=== PATIENT | female | born 1985 | race Caucasian/White ===

== ENCOUNTER → 2016-04-27 09:15 | Outpatient (CLI) | payer BC ==
[2014-10-17 15:09] VITALS: BMI 35.8
[~2016-04-27 09:15] MED LIST: ACETAMINOPHEN500 M1 PO; ATIVAN1 MG PO; BENTYL10 MG PO; CELEXA10 MG PO; COMPAZINE10 MG PO; IMITREX100 MG PO; MULTI-DAY VITAM1 TAB PO; OXYCONTIN10 MG PO; PRILOSEC20 MG PO; SINGULAIR10 MG PO; TOPAMAX25 MG PO; ULTRAM50 MG PO; VALTREX500 MG PO; XARELTO20 MG PO; ZOFRAN8 MG PO; ZYRTEC10 MG PO
== END | disposition home or self-care (01) ==
LOC: D.US 09:15
DX: I82.401 Acute embolism and thrombosis of unspecified deep veins of right lower extremity (principal)

== ENCOUNTER 2016-06-15 21:15 | Emergency (ER) | payer BC ==
[2014-10-17 15:09] VITALS: BMI 35.8
[2016-06-15 23:53] LABS: BASOPHILS 0.1 % (0.0-2.0); EOSINOPHILS 0.1 % (0-7); HEMATOCRIT 39.4 % (36.0-48.0); HEMOGLOBIN 12.9 g/dL (12-16); IMMATURE GRANULOCYTES 0.1 % (0-5); LYMPHOCYTES 12.8 % (15-50); MCH 31.4 pg (26.0-34.0); MCHC 32.7 g/dL (31.0-37.0); MCV 95.9 fL (80.0-100.0); MEAN PLATELET VOLUME 10.4 fL (7.4-10.4); MONOCYTES 9.7 % (2-11); NEUTROPHILS 77.2 % (40-80); PLATELET COUNT 181 10x3/uL (130-400); RBC 4.11 10x6/uL (4.00-5.40); RDW 13.6 % (11.5-14.5); WBC 7.7 10x3/uL (4.8-10.8)
[2016-06-16 00:06] LABS: ALBUMIN 3.7 g/dL (3.4-5.0); ANION GAP 16.4 mmol/L (8-16); BILIRUBIN - TOTAL 0.35 mg/dL (0.2-1.3); CALCIUM 8.8 mg/dL (8.5-10.1); POTASSIUM - SERUM 3.4 mmol/L (3.5-5.1); PROTEIN - SERUM 7.8 g/dL (6.4-8.2)
[2016-06-16 06:28] LABS: MAGNESIUM - SERUM 1.9 mg/dL (1.8-2.4); PHOSPHOROUS 3.6 mg/dL (2.5-4.9); PRO BNP 33 pg/mL (0-125)
[2016-06-16 06:31] LABS: TROPONIN-I < 0.017 ng/mL (0.000-0.060)
[2016-06-16 06:36] LABS: APTT 34.7 SECONDS (22.8-39.4); INR 1.11 (0.85-1.17); PROTIME 14.2 SECONDS (11.6-15.0)
[2016-06-16 06:45] LABS: D-DIMER-QUANTITATIVE < 0.27 ug/mLFEU (0.20-0.54)
== END 2016-06-16 07:29 | disposition home or self-care (01) ==
LOC: D.ER 21:15
PROVIDERS: Surgery
DX: J18.9 Pneumonia, unspecified organism (principal); C18.9 Malignant neoplasm of colon, unspecified

== ENCOUNTER → 2016-06-28 12:55 | Outpatient (CLI) | payer BC ==
[2014-10-17 15:09] VITALS: BMI 35.8
== END | disposition home or self-care (01) ==
LOC: D.LABREF 12:55
DX: C18.9 Malignant neoplasm of colon, unspecified (principal)

== ENCOUNTER → 2016-10-30 15:33 | Outpatient (CLI) | payer BC ==
[2014-10-17 15:09] VITALS: BMI 35.8
== END | disposition home or self-care (01) ==
LOC: D.US 13:30
DX: I26.99 Other pulmonary embolism without acute cor pulmonale (principal)